=== PATIENT | male | born 1955 | race Caucasian/White ===

== ENCOUNTER 2022-05-27 12:33 | Outpatient (CLI) | payer MEDICARE ==
[2022-05-27] MEDS ORDERED: Magnevist 469MG/ML 20 ML VIAL ONE (14:41)
== END 2022-05-27 12:34 | disposition home or self-care (01) ==
LOC: CSHMRI 12:33
PROVIDERS: ATTEND Otolaryngology Otolaryngic Allergy
DX: H91.8X2 Other specified hearing loss, left ear (principal); R55 Syncope and collapse
CPT/HCPCS: 70553